=== PATIENT | female | born 2000 | race Two or more races ===

== ENCOUNTER 2024-11-21 22:07 | Emergency (ER) | payer MEDICAID ==
[~2024-11-21] VITALS: Ht 165.1 cm; Wt 59.4 kg
[2024-11-21 22:30] VITALS: BP 103/49; PULSE 98; RESP 18; TEMP 98.1; O2SAT 97
--- NOTE | 2024-11-21 22:44 | ED.PDOC ---
Back pain HPI HPI Comments PATIENT C/O GENERALIZED, SHARP ABDOMINAL PAIN WITH DARK DIARRHEA FOR ONE MONTH. PT LMP 10/06, HAS TAKEN HOME TEST WHICH WAS NEGATIVE. DENIES NAUSEA, VOMITING, RECENT TRAVEL OR KNOWN ILL CONTACTS. DENIES VAGINAL BLEEDING, SPOTTING. Time Seen by MD: 22:24 Primary Care Provider: Erwin Myles Notes: Nurses Notes, Medications, Allergies Allergies: Coded Allergies: NO KNOWN ALLERGIES (Unverified , 03/12/15) Home Meds Active Scripts Cephalexin Monohydrate (Cephalexin) 500 Mg Cap, 1 CAP PO TID for 7 Days, #21 CAP Prov:CROW ENGLAND BARREL DEDENTING MACHINE OPERATOR 11/22/24 Information Source: Patient Past Medical History PAST MEDICAL HISTORY: Denies Surgical History: Denies all surgeries FRICTION SAW OPERATOR History: No Pertinent FRICTION SAW OPERATOR History Family History Family History: Unknown Social History Smoker: Non-Smoker Alcohol: Denies ETOH Use Drugs: Denies Drug Use Lives In: Home Constitutional: denies: chills, diaphoresis, fatigue, fever, malaise, sweats, weakness, others EENTM: denies: blurred vision, double vision, ear bleeding, ear discharge, ear drainage, ear pain, ear ringing, eye pain, eye redness, hearing loss, mouth pain, mouth swelling, nasal discharge, nose bleeding, nose congestion, nose pain, photophobia, tearing, throat pain, throat swelling, voice changes, others Respiratory: denies: cough, hemoptysis, orthopnea, SOB at rest, shortness of breath, SOB with excertion, stridor, wheezing, others Cardiovascular: denies: chest pain, dizzy spells, diaphoresis, Dyspnea on exertion, edema, irregular heart beat, left arm pain, lightheadedness, palpitations, PND, syncope, others Gastrointestinal: reports: abdominal pain, diarrhea, melena; denies: abdomen distended, blood streaked bowels, constipated, dysphagia, difficulty swallowing, hematemesis, nausea, poor appetite, poor fluid intake, rectal bleeding, rectal pain, vomiting, others Genitourinary: denies: abnormal vagina bleeding, burning, dyspareunia, dysuria, flank pain, frequency, hematuria, incontinence, pain, , vagina discharge, urgency, others Neurological: denies: dizziness, fainting, headache, left sided numbness, left sided weakness, numbness, paresthesia, pre-existing deficit, right sided numbness, right sided weakness, seizure, speech problems, tingling, tremors, weakness, others Musculoskeletal: denies: back pain, gout, joint pain, joint swelling, muscle pain, muscle stiffness, neck pain, others Integumetry: denies: bruises, change in color, change in hair/nails, dryness, laceration, lesions, lumps, rash, wounds, others Allergic/Immunocompromised: denies: Difficulty Healing, Frequent Infections, Hives, Itching, others Hematologic/Lymphatic: denies: anemia, blood clots, easy bleeding, easy bruising, swollen glands, others Endocrine: denies: excessive hunger, excessive sweating, excessive thirst, excessive urination, flushing, intolerance to cold, intolerance to heat, u nexplained weight gain, unexplained weight loss, others Psychiatric: denies: anxiety, bipolar disorder, depression, hopeless, panic disorder, schizophrenia, sleepless, suicidal, others Physical Exam General Appearance: No Apparent Distress, Normal HEENT: Normal ENT Inspection, Pharynx Normal, TMs Normal Neck: Full Range of Motion, Non-Tender, Normal, Normal Inspection Respiratory: Chest Non-Tender, Lungs Clear, No Accessory Muscle Use, No Respiratory Distress, Normal Breath Sounds Cardiovascular: No Edema, No JVD, No Murmur, No Gallop, Normal Peripheral Pulses, Regular Rate/Rhythm Breast Exam: Deferred Gastrointestinal: No Organomegaly, Non Tender, No Pulsatile Mass, Normal Bowel Sounds, Soft Genitalia: Deferred Pelvic: Deferred Rectal: Deferred Extremities: No calf tenderness, Normal capillary refill, Normal inspection, Normal range of motion, Non-tender, No pedal edema Musculoskeletal : Apperance: Normal Neurologic: Alert, bridge mechanic II-XII nml as Tested, No Motor Deficits, Normal Affect, Normal Mood, No Sensory Deficits Cerebellar Function: Normal Reflexes: Normal Skin: Dry, Normal Color, Warm Lymphatic: No Adenopathy Was a procedure done? Was a procedure done?: No Back Pain Differential Dx Differential Diagnosis: Appendicitis, Bowel Obstruction, Cholelithiasis, Cholangitis X-Ray, Labs, Meds, VS Vital Signs Date Time Temp Pulse Resp B/P (MAP) Pulse Ox O2 Delivery O2 Flow Rate FiO2 11/21/24 22:30 Room Air 11/21/24 22:30 98.1 98 18 103/49 (67) 97 98.1 11/21/24 22:30 98.1 98 18 103/49 (67) 97 98.1 Lab Test 11/21/24 23:21 11/21/24 22:38 Range/Units White Blood Count 4.8 4.4-10.8 10^3/uL Red Blood Count 3.05 L 4.0-5.20 10^6/uL Hemoglobin 10.7 L 12.2-16.2 g/dL Hematocrit 31.6 L 36.0-46.0 % Mean Corpuscular Volume 103.5 H 80.0-100.0 fL Mean Corpuscular Hemoglobin 35.2 H 28.0-32.0 pg Mean Corpuscular Hemoglobin Concent 34.0 32.0-36.0 g/dL Red Cell Distribution Width 12.7 11.8-14.3 % Platelet Count 260 140-450 10^3/uL Mean Platelet Volume 7.3 6.9-10.8 fL Neutrophils (%) (Auto) 51.2 37.0-80.0 % Lymphocytes (%) (Auto) 35.0 10.0-50.0 % Monocytes (%) (Auto) 10.9 0.0-12.0 % Eosinophils (%) (Auto) 2.1 0.0-7.0 % Basophils (%) (Auto) 0.8 0.0-2.0 % Neutrophils # (Auto) 2.4 1.6-8.6 10 ^3/uL Lymphocytes # (Auto) 1.7 0.4-5.4 10 ^3/uL Monocytes # (Auto) 0.5 0-1.3 10 ^3/uL Eosinophils # (Auto) 0.1 0-0.8 10 ^3/uL Basophils # (Auto) 0 0-0.2 10 ^3/uL Nucleated Red Blood Cells 0.1 % Sodium Level 143 136-145 mmol/L Potassium Level 3.5 3.5-5.1 mmol/L Chloride Level 112 H 98-107 mmol/L Carbon Dioxide Level 25 20-31 mmol/L Anion Gap 6 5-15 Blood Urea Nitrogen 8 L 9-23 mg/dL Creatinine 0.50 L 0.550-1.02 mg/dL Glomerular Filtration Rate Calc 134 >90 mL/min BUN/Creatinine Ratio 16.0 10.0-20.0 Serum Glucose 107 H 74-106 mg/dL Calcium Level 8.0 L 8.7-10.4 mg/dL Total Bilirubin 0.2 0.2-1.0 mg/dL Aspartate Amino Transferase (AST) < 8 L 13-40 U/L Alanine Aminotransferase (ALT) 10 7-40 U/L Alkaline Phosphatase 44 L 46-116 U/L Total Protein 5.9 5.7-8.2 g/dL Albumin 4.1 3.2-4.8 g/dL Lipase 58 H 12-53 U/L Beta HCG, Quantitative 998.6 H 1.5-4.2 mIU/mL Urine Color Light-orange Yellow Urine Clarity Turbid H Clear Urine pH 6.0 5.0-9.0 Urine Specific [place] 1.030 1.001-1.035 Urine Protein Negative Negative Urine Ketones Trace Negative Urine Blood Negative Negative /uL Urine Nitrite Negative Negative Urine Bilirubin Negative Negative Urine Urobilinogen Normal Negative mg/dL Urine Leukocyte Esterase 3+ Negative /uL Urine RBC 9 0 - 4 /hpf Urine Microscopic WBC 33 H 0-5 /HPF Urine Squamous Epithelial Cells Mod <5 /hpf Urine Bacteria Few H None Seen /hpf Urine Mucus Few None Seen Urine Glucose Normal Normal mg/dL Urine Test Positive Negative X-Ray, Labs, Meds, VS Comment IMPRESSION: 1. Tiny cystic structure in the endometrial cavity which could be an early gestational sac. Follow-up by trending beta HCGs and follow-up ultrasound in 7- 14 days. 2. Thick-walled centrally hypoechoic structure in the right ovary which could reflect a corpus luteum cyst although a gestational sac is not excluded. Close clinical follow-up recommended. The ordering provider with given preliminary findings by the sock knitting machine operator. 3. Left ovary not visualized. BETA HCG 998.6 DISCUSSED FINDINGS WITH PATIENT AND PATIENT'S MOTHER IN DETAIL. COPIES OF ULTRASOUND PROVIDED. ADVISED TO FOLLOW UP WITHIN 7-14 DAYS EITHER HERE IN THE ER OR CALL ON WEDNESDAY SET UP AN APPOINTMENT WITH OB HERE AT THE HOSPITAL FOR REPEAT ULTRASOUND AND BETA HCG FOR TRENDING. ADVISED ON ER PRECAUTIONS INCREASING PAIN, BLEEDING VAGINALLY OR ANY CONCERNING SYMPTOMS PATIENT AND MOT HER INDICATED UNDERSTANDING. UA POSITIVE INFECTION SCRIPT KEFLEX TO PHARMACY ON FILE. ADVISED TO TAKE MEDICATIONS PRESCRIBED SIDE EFFECTS DISCUSSED. ADVISED TO REST INCREASE P.O. FLUIDS WITH ELECTROLYTES. ADVISED TO CALL AND FOLLOW UP WITH YOUR DOCTOR IN 2 DAYS [id number] TYLENOL NEEDED FOR PAIN PER LABELED DOSING INSTRUCTIONS. ER RETURN PRECAUTIONS GIVEN MOTHER AND PATIENT INDICATED UNDERSTANDING AND AGREE WITH DISCHARGE PLAN OF CARE. Time of 1ST Reevaluation: 22:44 Reevaluation 1ST: Unchanged Time of 2ND Reevaluation: 01:13 Reevaluation 2ND: Improved Patient Education/Counseling: Diagnosis, Treatment, Prognosis, Need For Follow Up Family Education/Counseling: No Family Present Departure 1 Departure Time of Disposition: 01:13 Impression: Primary Impression: Threatened miscarriage in early Additional Impression: Urinary tract infection Qualified Codes: N30.00 - Acute cystitis without hematuria Disposition: HOME / SELF CARE / HOMELESS Condition: Stable Additional Instructions: DISCUSSED FOLLOW UP FOR REPEAT BLOOD WORK IN ULTRASOUND IN 7-14 DAYS. RETURN TO THE ER IMMEDIATELY FOR INCREASING PAIN, VAGINAL BLEEDING OR ANY OTHER CONCERNING SYMPTOMS. e-Prescriptions Cephalexin Monohydrate (Cephalexin) 500 Mg Cap 1 CAP PO TID for 7 Days, #21 CAP Prov: CROW ENGLAND 11/22/24 Discharged With: Self Critical Care Note Critical Care Time?: No Stability Stability form required: CROW Allen November 21, 2024 22:44
[2024-11-21 23:11] LABS: Urine Bacteria FEW /hpf (None Seen); Urine Blood Negative /uL (Negative); Urine Clarity Turbid (Clear); Urine Color Light-Orange (Yellow); Urine Mucus FEW (None Seen); Urine Protein, UAD Negative (Negative); Urine Squamous Epithelial Cell MOD /hpf (<5); Urine Urobilinogen Normal (Negative); Urine WBC 33 /HPF (0-5)
[2024-11-21 23:31] LABS: Basophils # (auto) 0 10 ^3/uL (0-0.2); Eosinophils # (auto) 0.1 10 ^3/uL (0-0.8); Hemoglobin 10.7 g/dL (12.2-16.2); Monocytes # (auto) 0.5 10 ^3/uL (0-1.3)
[2024-11-21 23:33] LABS: Basophils % (auto) 0.8 % (0.0-2.0); Eosinophils % (auto) 2.1 % (0.0-7.0); Hematocrit 31.6 % (36.0-46.0); Lymphocytes # (auto) 1.7 10 ^3/uL (0.4-5.4); Mean Corpuscular Hemoglobin 35.2 pg (28.0-32.0); Mean Corpuscular Volume 103.5 fL (80.0-100.0); Monocytes % (auto) 10.9 % (0.0-12.0); Neutrophils # (auto) 2.4 10 ^3/uL (1.6-8.6); Neutrophils % (auto) 51.2 % (37.0-80.0); Nucleated Red Blood Cells % 0.1 %; Platelet Count (auto) 260 10^3/uL (140-450); Red Blood Cells 3.05 10^6/uL (4.0-5.20); Red Cell Distribution Width 12.7 % (11.8-14.3); White Blood Cell 4.8 10^3/uL (4.4-10.8)
[2024-11-21 23:48] LABS: Alanine Aminotransferase 10 U/L (7-40); Albumin 4.1 g/dL (3.2-4.8); Anion Gap 6 (5-15); Carbon Dioxide 25 mmol/L (20-31); Potassium 3.5 mmol/L (3.5-5.1); Sodium 143 mmol/L (136-145); Total Protein 5.9 g/dL (5.7-8.2)
[2024-11-21 23:54] LABS: Alkaline Phosphatase 44 U/L (46-116); Aspartate Aminotransferase < 8 U/L (13-40); Bilirubin, Total 0.2 mg/dL (0.2-1.0); Blood Urea Nitrogen 8 mg/dL (9-23); Chloride 112 mmol/L (98-107); Glucose 107 mg/dL (74-106); Lipase 58 U/L (12-53)
--- NOTE | 2024-11-22 00:59 | DVH ---
OBSTETRIC ULTRASOUND PRIOR TO 14 WEEKS CLINICAL INDICATION: ABD PAIN TECHNIQUE: Multiple grayscale ultrasound images were obtained of the pelvis via transabdominal and tr ansvaginal approach for obstetric evaluation. Limited color Doppler and spectral Doppler acquisitions were also obtained. COMPARISON: None FINDINGS: Uterus: 7.6 x 5.4 x 4.1 cm. Possible early gestational sac measuring 0.33 cm. No pole or yolk s ac seen. Right adnexa: right ovary 3.1 x 2.6 x 2.0 cm. Normal arterial blood flow in the ovary. No right adnex al mass seen. A thick-walled central mild fluid containing structure in the right ovary is seen. Ther e is a cyst in the right ovary measuring 2.4 cm. Left adnexa: left ovary not visualized . No left adnexal mass seen. Other: None IMPRESSION: 1. Tiny cystic structure in the endometrial cavity which could be an early gestational sac. Follow-up by trending beta HCGs and follow-up ultrasound in 7-14 days. 2. Thick-walled centrally hypoechoic structure in the right ovary which could reflect a corpus luteum cyst although a gestational sac is not excluded. Close clinical follow-up recommended. The ordering provider with given preliminary findings by the intervention manager. 3. Left ovary not visualized.
[2024-11-22] MEDS ORDERED: CEPH500C PO (01:15)
== END 2024-11-22 01:24 | disposition home or self-care (01) ==
LOC: ER 22:07
DX: O20.0 Threatened abortion (principal); O23.41 Unspecified infection of urinary tract in pregnancy, first trimester; N39.0 Urinary tract infection, site not specified; Z3A.01 Less than 8 weeks gestation of pregnancy
CPT/HCPCS: 36415; 76801; 76817; 80053; 81001; 81025; 83690; 84702; 85025

== ENCOUNTER 2024-11-22 05:16 | Emergency (ER) | payer MEDICAID ==
[~2024-11-22] VITALS: Ht 165.1 cm; Wt 59.6 kg
[~2024-11-22 05:16] MED LIST: CEPH500C PO
[2024-11-22 06:17] LABS: Hemoglobin 11.6 g/dL (12.2-16.2)
[2024-11-22 06:20] LABS: Hematocrit 33.3 % (36.0-46.0)
--- NOTE | 2024-11-22 08:03 | ED.PDOC ---
GI ASSESSMENT HPI Comments 24 year old female presents to the ED with chief complaint of GI bleed. Patient reports that she has been experiencing some blood in her stool since yesterday along with unassociated numbness/tingling to her feet and face, dizziness, and abdominal pain. Patient relays that she was seen yesterday for her abdominal pain and was told she was along with having a possible ectopic , needing to follow up with her OBGYN for further assessment. Patient notes she was also told she had a UTI. Patient denies any N/V, fever, chills, dysuria, hematuria, chest pain, or SOB. Chief Complaint: GI Bleed Time Seen by MD: 07:58 Primary Care Provider: Erwin Myles Notes: Nurses Notes, Medications, Allergies Allergies: Coded Allergies: NO KNOWN ALLERGIES (Unverified , 03/12/15) Home Meds Active Scripts Cephalexin Monohydrate (Cephalexin) 500 Mg Cap, 1 CAP PO TID for 7 Days, #21 CAP Prov:SAMANTAKIMBERLIK REDEVELOPMENT MANAGER 11/22/24 Information Source: Patient Mode of Arrival: Ambulatory Timing: Hours Duration: Since onset Prehospital treatment: None Quality: Aching Vomitus: None Stool: Blood Streaked Severity: Moderate Recent: None Recent Hx of: Current , None Past Medical History PAST MEDICAL HISTORY: Denies Surgical History: Denies all surgeries ELEMENTARY SCHOOL LIBRARIAN History: No Pertinent ELEMENTARY SCHOOL LIBRARIAN History Family History Family History: Unknown Social History Smoker: Non-Smoker Alcohol: Occasionally Drugs: Marijuana Lives In: Home Constitutional: denies: chills, diaphoresis, fatigue, fever, malaise, sweats, weakness, others EENTM: denies: blurred vision, double vision, ear bleeding, ear discharge, ear drainage, ear pain, ear ringing, eye pain, eye redness, hearing loss, mouth pain, mouth swelling, nasal discharge, nose bleeding, nose congestion, nose pain, photophobia, tearing, throat pain, throat swelling, voice changes, others Respiratory: denies: cough, hemoptysis, orthopnea, SOB at rest, shortness of breath, SOB with excertion, stridor, wheezing, others Cardiovascular: denies: chest pain, dizzy spells, diaphoresis, Dyspnea on exertion, edema, irregular heart beat, left arm pain, lightheadedness, palpitations, PND, syncope, others Gastrointestinal: reports: abdominal pain, blood streaked bowels; denies: abdomen distended, constipated, diarrhea, dysphagia, difficulty swallowing, hematemesis, melena, nausea, poor appetite, poor fluid intake, rectal bleeding, rectal pain, vomiting, others Genitourinary: reports: ; denies: abnormal vagina bleeding, burning, d yspareunia, dysuria, flank pain, frequency, hematuria, incontinence, pain, vagina discharge, urgency, others Neurological: reports: dizziness, numbness, tingling; denies: fainting, headache, left sided numbness, left sided weakness, paresthesia, pre-existing deficit, right sided numbness, right sided weakness, seizure, speech problems, tremors, weakness, others Musculoskeletal: denies: back pain, gout, joint pain, joint swelling, muscle pain, muscle stiffness, neck pain, others Integumetry: denies: bruises, change in color, change in hair/nails, dryness, laceration, lesions, lumps, rash, wounds, others Allergic/Immunocompromised: denies: Difficulty Healing, Frequent Infections, Hives, Itching, others Hematologic/Lymphatic: denies: anemia, blood clots, easy bleeding, easy bruising, swollen glands, others Endocrine: denies: excessive hunger, excessive sweating, excessive thirst, excessive urination, flushing, intolerance to cold, intolerance to heat, unexplained weight gain, unexplained weight loss, others Psychiatric: denies: anxiety, bipolar disorder, depression, hopeless, panic disorder, schizophrenia, sleepless, suicidal, others All Other Systems: Reviewed and Negative Physical Exam General Appearance: No Apparent Distress, Normal HEENT: Normal ENT Inspection, Pharynx Normal, TMs Normal Neck: Full Range of Motion, Non-Tender, Normal, Normal Inspection Respiratory: Chest Non-Tender, Lungs Clear, No Accessory Muscle Use, No Respi ratory Distress, Normal Breath Sounds Cardiovascular: No Edema, No JVD, No Murmur, No Gallop, Normal Peripheral Pulses, Regular Rate/Rhythm Breast Exam: Deferred Gastrointestinal: No Organomegaly, Non Tender, No Pulsatile Mass, Normal Bowel Sounds, Soft Genitalia: Deferred Pelvic: Deferred Rectal: Deferred Extremities: No calf tenderness, Normal capillary refill, Normal inspection, Normal range of motion, Non-tender, No pedal edema Musculoskeletal : Apperance: Normal Neurologic: Alert, break out man II-XII nml as Tested, No Motor Deficits, Normal Affect, Normal Mood, No Sensory Deficits Cerebellar Function: Normal Reflexes: Normal Skin: Dry, Pallor, Warm Lymphatic: No Adenopathy Was a procedure done? Was a procedure done?: No GI differential Dx Differential Diagnosis: Dehydration, Other (Threatened miscarriage) X-Ray, Labs, Meds, VS Vital Signs Date Time Temp Pulse Resp B/P (MAP) Pulse Ox O2 Delivery O2 Flow Rate FiO2 11/22/24 08:18 98.5 79 18 100/39 (59) 100 98.5 11/22/24 08:11 79 17 100 Room Air* 0 21 11/22/24 07:07 98.9 64 13 105/49 (67) 99 98.9 11/22/24 05:25 98.3 78 18 110/65 (80) 97 98.3 Lab Test 11/22/24 09:38 11/22/24 08:12 11/22/24 05:56 Range/Units Urine Color Light-yellow Yellow Urine Clarity Clear Clear Urine pH 6.0 5.0-9.0 Urine Specific [place] 1.015 1.001-1.035 Urine Protein Negative Negative Urine Ketones Negative Negative Urine Blood Negative Negative /uL Urine Nitrite Negative Negative Urine Bilirubin Negative Negative Urine Urobilinogen Normal Negative mg/dL Urine Leukocyte Esterase Trace Negative /uL Urine RBC 1 0 - 4 /hpf Urine Microscopic WBC 7 H 0-5 /HPF Urine Squamous Epithelial Cells Few <5 /hpf Urine Bacteria None seen None Seen /hpf Urine Glucose Normal Normal mg/dL White Blood Count 4.9 4.4-10.8 10^3/uL Red Blood Count 3.20 L 4.0-5.20 10^6/uL Hemoglobin 11.3 L 11.6 L 12.2-16.2 g/dL Hematocrit 33.3 L 33.3 L 36.0-46.0 % Mean Corpuscular Volume 104.2 H 80.0-100.0 fL Mean Corpuscular Hemoglobin 35.4 H 28.0-32.0 pg Mean Corpuscular Hemoglobin Concent 34.0 32.0-36.0 g/dL Red Cell Distribution Width 13.1 11.8-14.3 % Platelet Count 278 140-450 10^3/uL Mean Platelet Volume 7.7 6.9-10.8 fL Neutrophils (%) (Auto) 56.4 37.0-80.0 % Lymphocytes (%) (Auto) 32.4 10.0-50.0 % Monocytes (%) (Auto) 9.5 0.0-12.0 % Eosinophils (%) (Auto) 1.1 0.0-7.0 % Basophils (%) (Auto) 0.6 0.0-2.0 % Neutrophils # (Auto) 2.8 1.6-8.6 10 ^3/uL Lymphocytes # (Auto) 1.6 0.4-5.4 10 ^3/uL Monocytes # (Auto) 0.5 0-1.3 10 ^3/uL Eosinophils # (Auto) 0.1 0-0.8 10 ^3/uL Basophils # (Auto) 0 0-0.2 10 ^3/uL Nucleated Red Blood Cells 0.0 % Troponin I High Sensitivity < 3 L < 3 L </=34 ng/L Sodium Level 143 136-145 mmol/L Potassium Level 3.8 3.5-5.1 mmol/L Chloride Level 111 H 98-107 mmol/L Carbon Dioxide Level 24 20-31 mmol/L Anion Gap 8 5-15 Blood Urea Nitrogen 9 9-23 mg/dL Creatinine 0.79 # 0.550-1.02 mg/dL Glomerular Filtration Rate Calc 107 >90 mL/min BUN/Creatinine Ratio 11.4 10.0-20.0 Serum Glucose 74 74-106 mg/dL Calcium Level 9.2 8.7-10.4 mg/dL B-Type Natriuretic Peptide 44.07 0-100 pg/mL Current Medications Medications (Trade) Dose Ordered Sig/Massimo Route Start Time Stop Time Status Last Admin Sodium Chloride 1,000 ml @ 1,000 mls/hr Q1H ONCE IV 11/22/24 08:00 11/22/24 08:59 DC 11/22/24 08:23 Time of 1ST Reevaluation: 08:58 Reevaluation 1ST: Improved Patient Education/Counseling: Diagnosis, Treatment Family Education/Counseling: No Family Present Additional Information The following tests were ordered, and results were reviewed by me: CBC, BMP, UA Additional Information was gathered from interviewing the following independent historians: None I reviewed and agreed with the following test results read by other providers: None I discussed treatment and results with medical personnel and: patient Comprehensive systems review obtained and negative except for what is stated in the HPI. Departure 1 Departure Time of Disposition: 10:13 (Patient with a threatened miscarriage versus early ectopic. We will discharge patient home with outpatient follow up) Impression: Primary Impression: Threatened miscarriage in early Disposition: HOME / SELF CARE / HOMELESS Condition: Stable Referrals: TOYIN LONDON DO Additional Instructions: You have a threatened miscarriage. Your beta hcg level today was 998. Your ultrasound showed a possible early in your uterus and a cystic structure in your right ovary. You should follow up with OBGYN within three days to recheck your blood work and your ultrasound. Please call for an appointment. If your symptoms worsen or you have any other concerns then please return to the ER. Discharged With: Self Critical Care Note Critical Care Time?: No Stability Stability form required: No Heart Score Heart Score: Heart Score Response (Comments) Value History N/A 0 EKG N/A 0 Age N/A 0 Risk Factors N/A 0 Troponin N/A 0 Total 0 I personally scribed for ARMIDA ADLER MD ([email or web address]) on 11/22/24 at 08:03. Electronically submitted by Marco Antonio Gaming ([email or web address]). ARMIDA ADLER MD November 22, 2024 08:03
[2024-11-22 08:11] VITALS: PULSE 79; RESP 17; O2SAT 100
[2024-11-22 08:12] LABS: Potassium 3.8 mmol/L (3.5-5.1); Sodium 143 mmol/L (136-145)
[2024-11-22 08:13] LABS: Anion Gap 8 (5-15); Carbon Dioxide 24 mmol/L (20-31)
[2024-11-22 08:14] LABS: Calcium 9.2 mg/dL (8.7-10.4)
[2024-11-22 08:19] LABS: BUN/Creatinine Ratio 11.4 (10.0-20.0)
[2024-11-22 08:22] LABS: Blood Urea Nitrogen 9 mg/dL (9-23); Chloride 111 mmol/L (98-107); Glucose 74 mg/dL (74-106)
[2024-11-22] MEDS: SODIUM CHLORIDE 0.9% 1,000 ML IV ONE (08:23)
[2024-11-22] MEDS: ONDANSETRON HCL 4 MG/2 ML VIAL IV ONE (08:24)
[2024-11-22 08:35] LABS: Basophils # (auto) 0 10 ^3/uL (0-0.2); Basophils % (auto) 0.6 % (0.0-2.0); Eosinophils # (auto) 0.1 10 ^3/uL (0-0.8); Eosinophils % (auto) 1.1 % (0.0-7.0); Hematocrit 33.3 % (36.0-46.0); Hemoglobin 11.3 g/dL (12.2-16.2); Lymphocytes # (auto) 1.6 10 ^3/uL (0.4-5.4); Lymphocytes % (auto) 32.4 % (10.0-50.0); Mean Corpuscular Hemoglobin 35.4 pg (28.0-32.0); Mean Corpuscular Volume 104.2 fL (80.0-100.0); Monocytes # (auto) 0.5 10 ^3/uL (0-1.3); Monocytes % (auto) 9.5 % (0.0-12.0); Neutrophils # (auto) 2.8 10 ^3/uL (1.6-8.6); Neutrophils % (auto) 56.4 % (37.0-80.0); Platelet Count (auto) 278 10^3/uL (140-450); Red Cell Distribution Width 13.1 % (11.8-14.3); White Blood Cell 4.9 10^3/uL (4.4-10.8)
[2024-11-22 09:40] LABS: Urine Bacteria None Seen /hpf (None Seen)
[2024-11-22 09:56] LABS: Urine Blood Negative /uL (Negative); Urine Clarity Clear (Clear); Urine Color Light-Yellow (Yellow); Urine Protein, UAD Negative (Negative); Urine Specific Gravity 1.015 (1.001-1.035); Urine Squamous Epithelial Cell FEW /hpf (<5); Urine Urobilinogen Normal (Negative); Urine WBC 7 /HPF (0-5)
[2024-11-22 11:04] VITALS: BP 108/56; PULSE 61; RESP 16; TEMP 98.7; O2SAT 99
== END 2024-11-22 11:05 | disposition home or self-care (01) ==
LOC: ER 05:16
DX: O20.0 Threatened abortion (principal); R06.02 Shortness of breath; Z3A.01 Less than 8 weeks gestation of pregnancy
CPT/HCPCS: 36415; 80048; 81001; 83880; 84484; 85014; 85018; 85025; 96360; 99283; J7030; J2405

== ENCOUNTER 2024-11-27 00:17 | Emergency (ER) | payer MEDICAID ==
[~2024-11-27] VITALS: Ht 165.1 cm; Wt 55.1 kg
[2024-11-27 00:50] LABS: Urine Bacteria MANY /hpf (None Seen); Urine Blood 3+ /uL (Negative); Urine Clarity Turbid (Clear); Urine Color Light-Orange (Yellow); Urine Mucus FEW (None Seen); Urine Protein, UAD 1+ (Negative); Urine Squamous Epithelial Cell MANY /hpf (<5); Urine Urobilinogen Normal (Negative); Urine WBC 21 /HPF (0-5)
--- NOTE | 2024-11-27 02:11 | DVH ---
INDICATION: VAG BLEEDING, FOLLOW UP ULTRASOUND TECHNIQUE: Multiple real-time grayscale transabdominal sonographic images along with color and duplex Doppler of the uterus and ovaries were obtained. COMPARISON: US OB ULTRASOUND COMP LESS 14WKS on DOS: 11/21/24 Uterus: 7.8 x 4.1 x 5.3 cm. Possible early gestational sac measuring 0.7 cm compared with 0.3 cm on t he prior ultrasound. No pole or yolk sac seen. Right adnexa: right ovary 4.3 x 2.4 x 2.0 cm. Normal arterial blood flow in the ovary. No right adnex al mass seen. A thick-walled cystic structure measuring approximately 2.0 x 1.8 x 1.3 cm is redemonst rated within the right ovary. A cystic structure adjacent to the ovary measures 2.5 x 2.4 x 1.8 cm. Left adnexa: left ovary measures 2.8 x 1.9 x 2.2 cm. Normal arterial blood flow in the ovary. No lef t adnexal mass seen. IMPRESSION: 1. Mild interval progression in size of potential early gestational sac now measuring 0.7 cm without identifiable yolk sac. Recommend follow-up trending beta hCGs and follow-up ultrasound as indicated. 2. Grossly stable appearing thick walled cystic structure within the right ovary and cystic structure adjacent to the right ovary.
[2024-11-27 02:44] VITALS: BP 99/62; TEMP 98.2
[2024-11-27 02:49] VITALS: PULSE 90; RESP 20; O2SAT 98
--- NOTE | 2024-11-27 02:49 | ED.PDOC ---
TERMINAL SUPERVISOR HPI Comments PATIENT C/O VAGINAL SPOTTING AND ABDOMINAL PAIN FOR 2 DAYS. PATIENT WAS SEEN HERE, TOLD SHE NEEDED TO FOLLOW UP WITH OBGYN IN 7-10 DAYS. ULTRA SOUND WAS UNCLEAR. Chief Complaint: Vaginal Bleed Time Seen by MD: 00:27 Reviewed Notes: Nurses Notes, Medications, Allergies Allergies: Coded Allergies: NO KNOWN ALLERGIES (Unverified , 03/12/15) Home Meds Active Scripts Nitrofurantoin Monohydrate Mac (Macrobid) 100 Mg Cap, 100 MG PO BID for 7 Days, #14 CAP Prov:CROW ENGLAND HEAD COUNSELOR 11/27/24 Cephalexin Monohydrate (Cephalexin) 500 Mg Cap, 1 CAP PO TID for 7 Days, #21 CAP Prov:CROW ENGLAND HEAD COUNSELOR 11/22/24 Information Source: Patient Past Medical History PAST MEDICAL HISTORY: Denies Surgical History: Denies all surgeries AUTH SPECIALIST History: No Pertinent AUTH SPECIALIST History Family History Family History: Unknown Social History Smoker: Non-Smoker Alcohol: Occasionally Drugs: Marijuana Lives In: Home Constitutional: denies: chills, diaphoresis, fatigue, fever, malaise, sweats, weakness, others EENTM: denies: blurred vision, double vision, ear bleeding, ear discharge, ear drainage, ear pain, ear ringing, eye pain, eye redness, hearing loss, mouth pain, mouth swelling, nasal discharge, nose bleeding, nose congestion, nose pain, photophobia, tearing, throat pain, throat swelling, voice changes, others Respiratory: denies: cough, hemoptysis, orthopnea, SOB at rest, shortness of breath, SOB with excertion, stridor, wheezing, others Cardiovascular: denies: chest pain, dizzy spells, diaphoresis, Dyspnea on exertion, edema, irregular heart beat, left arm pain, lightheadedness, palpitations, PND, syncope, others Gastrointestinal: denies: abdomen distended, abdominal pain, blood streaked bowels, constipated, diarrhea, dysphagia, difficulty swallowing, hematemesis, melena, nausea, poor appetite, poor fluid intake, rectal bleeding, rectal pain, vomiting, others Genitourinary: reports: abnormal vagina bleeding, burning, dysuria, ; denies: dyspareunia, flank pain, frequency, hematuria, incontinence, pain, vagina discharge, urgency, others Neurological: denies: dizziness, fainting, headache, left sided numbness, left sided weakness, numbness, paresthesia, pre-existing deficit, right sided numbness, right sided weakness, seizure, speech problems, tingling, tremors, weakness, others Musculoskeletal: denies: back pain, gout, joint pain, joint swelling, muscle pain, muscle stiffness, neck pain, others Integumetry: denies: bruises, change in color, change in hair/nails, dryness, laceration, lesions, lumps, rash, wounds, others Allergic/Immunocompromised: denies: Difficulty Healing, Frequent Infections, Hives, Itching, others Hematologic/Lymphatic: denies: anemia, blood clots, easy bleeding, easy bruisi ng, swollen glands, others Endocrine: denies: excessive hunger, excessive sweating, excessive thirst, exce ssive urination, flushing, intolerance to cold, intolerance to heat, unexplained weight gain, unexplained weight loss, others Psychiatric: denies: anxiety, bipolar disorder, depression, hopeless, panic disorder, schizophrenia, sleepless, suicidal, others Physical Exam General Appearance: No Apparent Distress, Normal HEENT: Pharynx Normal Neck: Full Range of Motion, Non-Tender Respiratory: Lungs Clear, No Respiratory Distress, Normal Breath Sounds Cardiovascular: No Edema, No JVD, No Murmur, No Gallop, Normal Peripheral Pulses, Regular Rate/Rhythm Breast Exam: Deferred Gastrointestinal: No Organomegaly, Non Tender, No Pulsatile Mass, Normal Bowel Sounds, Soft Genitalia: Deferred Pelvic: Deferred Rectal: Deferred Extremities: Normal capillary refill, Normal inspection, Normal range of motion, Non-tender, No pedal edema Musculoskeletal : Apperance: Normal Neurologic: Alert, vehicle refinisher II-XII nml as Tested, No Motor Deficits, Normal Affect, Normal Mood, No Sensory Deficits Cerebellar Function: Normal Reflexes: Normal Skin: Dry, Normal Color, Warm Lymphatic: No Adenopathy Was a procedure done? Was a procedure done?: No Differential Diagnosis (AUTH SPECIALIST) Vaginal Bleeding: - Threatened, Ectopic , UTI X-Ray, Labs, Meds, VS Vital Signs Date Time Temp Pulse Resp B/P (MAP) Pulse Ox O2 Delivery O2 Flow Rate FiO2 11/27/24 02:49 90 20 98 Room Air* 0 21 11/27/24 02:44 98.2 90 20 99/62 (74) 99 98.2 11/27/24 00:30 97.4 99 18 126/70 (88) 96 97.4 Lab Test 11/27/24 01:22 11/27/24 00:25 Range/Units Beta HCG, Quantitative 1472.7 H 1.5-4.2 mIU/mL Urine Color Light-orange Yellow Urine Clarity Turbid H Clear Urine pH 6.0 5.0-9.0 Urine Specific [place] 1.020 1.001-1.035 Urine Protein 1+ H Negative Urine Ketones Negative Negative Urine Blood 3+ H Negative /uL Urine Nitrite 2+ H Negative Urine Bilirubin Negative Negative Urine Urobilinogen Normal Negative mg/dL Urine Leukocyte Esterase 2+ Negative /uL Urine RBC 13 0 - 4 /hpf Urine Microscopic WBC 21 H 0-5 /HPF Urine Squamous Epithelial Cells Many <5 /hpf Urine Bacteria Many H None Seen /hpf Urine Mucus Few None Seen Urine Glucose Normal Normal mg/dL Current Medications Medications (Trade) Dose Ordered Sig/Massimo Route Start Time Stop Time Status Last Admin Ceftriaxone Sodium 50 ml @ 100 mls/hr ONCE ONCE IV 11/27/24 01:45 11/27/24 02:14 DC 11/27/24 03:00 Sodium Chloride 1,000 ml @ 1,000 mls/hr Q1H ONCE IV 11/27/24 01:45 11/27/24 02:44 DC 11/27/24 03:00 X-Ray, Labs, Meds, VS Comment Vaginal ultrasound shows no ectopic does show ovarian cyst a gestational sac. Recommendation is to continue with serial beta-hCGs and repeat ultrasound in 5-7 days. Patient does state she has an appointment on 11/27/2024 with her Ob. Copy of the ultrasound results in the beta hCG results were given the patient for her appointment. Does show her beta hCG is trending upward by almost doubling from 5 days ago. Patient does state spotting has resolved. UA does show positive infection with positive nitrites, WBCs, leukocyte esterase. Patient was given 1 dose of IV Rocephin and 1 L of fluids she does report improvement. She was prescribed Keflex 500 mg 3 times daily on her last visit 5 days ago in the ER she does state she has been taking the medications as prescribed states she has 2 days left. Case was discussed with Dr. Reeves, consider Possible resistance of the bacteria script trial of Macrobid 2 capsules twice a day x7 days. Urine culture was also sent along with a GC/chlamydia. S he reports no abdominal pain. Advised to continue to follow with obstetrics and gynecology professor, return to the ER for increasing pain, vaginal bleeding, or any concerning symptoms. Patient indicated understanding and agrees with discharge plan of care. Time of 1ST Reevaluation: 01:20 Reevaluation 1ST: Unchanged Time of 2ND Reevaluation: 03:22 Reevaluation 2ND: Improved Patient Education/Counseling: Diagnosis, Treatment, Prognosis, Need For Follow Up Family Education/Counseling: No Family Present Departure 1 Departure Time of Disposition: 03:26 Impression: Primary Impression: Threatened miscarriage in early Additional Impression: Urinary tract infection Qualified Codes: N30.01 - Acute cystitis with hematuria Disposition: HOME / SELF CARE / HOMELESS Condition: Stable e-Prescriptions Nitrofurantoin Monohydrate Mac (Macrobid) 100 Mg Cap 100 MG PO BID for 7 Days, #14 CAP Prov: CROW ENGLAND 11/27/24 Discharged With: Self Critical Care Note Critical Care Time?: No Stability Stability form required: CROW Allen November 27, 2024 02:49
[2024-11-27] MEDS: SODIUM CHLORIDE 0.9% 1,000 ML IV ONE (03:00)
[2024-11-27] MEDS: cefTRIAXone 1GM/50ML D5W 50 ML IV ONE (03:00)
[2024-11-27] MEDS ORDERED: NITR-87 PO (03:46)
== END 2024-11-27 04:03 | disposition home or self-care (01) ==
LOC: ER 00:17
DX: O20.0 Threatened abortion (principal); O23.41 Unspecified infection of urinary tract in pregnancy, first trimester; N39.0 Urinary tract infection, site not specified; Z3A.00 Weeks of gestation of pregnancy not specified
CPT/HCPCS: 36415; 76801; 76817; 81001; 84702; 96365; 99285; J0696

== ENCOUNTER 2025-04-15 15:14 | Emergency (ER) | payer MEDICAID ==
[~2025-04-15] VITALS: Ht 165.1 cm; Wt 56.3 kg
--- NOTE | 2025-04-15 16:26 | ED.PDOC ---
DOORMAKER HPI Comments Carmen Leonard is a 24-year-old female with past medical history of mis carriage on 11/2024 and ovarian cyst. The patient came to the ED with chief complain of 3 week of right pelvic pain, 5/10, cramp like, associated with lightheadedness, fatigue and generalized weakness. The patient reports some intermittent irregular vaginal spotting. Today, the pain worsen to 7/10, this prompted her visit to the ED. The patient denies fever, chills, vaginal dischar ge, nausea, vomit or other symptoms. In the ED, the patient is tachycardic: 110bpm, BP: 118/65mmHg. A pelvic US and labs were ordered. Chief Complaint: Pelvic Pain Time Seen by MD: 15:49 Allergies: Coded Allergies: NO KNOWN ALLERGIES (Unverified , 03/12/15) Past Medical History PAST MEDICAL HISTORY: Denies Surgical History: Denies all surgeries 1 Para 0 AB 1 () LMP September,. The patient reported that after the miscarriage she got the IUD, and she hasn't seen her menstrual periods since then. Family History Family History: Reviewed,noncontributory to illness, Unknown Social History Smoker: Non-Smoker Alcohol: Denies ETOH Use, Occasionally Drugs: Denies Drug Use, Marijuana Lives In: Home Constitutional: reports: fatigue, weakness EENTM: denies: blurred vision, double vision, ear bleeding, ear discharge, ear drainage, ear pain, ear ringing, eye pain, eye redness, hearing loss, mouth pain, mouth swelling, nasal discharge, nose bleeding, nose congestion, nose pain, photophobia, tearing, throat pain, throat swelling, voice changes, others Respiratory: denies: cough, hemoptysis, orthopnea, SOB at rest, shortness of breath, SOB with excertion, stridor, wheezing, others Cardiovascular: denies: chest pain, dizzy spells, diaphoresis, Dyspnea on exertion, edema, irregular heart beat, left arm pain, lightheadedness, palpitations, PND, syncope, others Gastrointestinal: denies: abdomen distended, abdominal pain, blood streaked bowels, constipated, diarrhea, dysphagia, difficulty swallowing, hematemesis, melena, nausea, poor appetite, poor fluid intake, rectal bleeding, rectal pain, vomiting, others Genitourinary: reports: abnormal vagina bleeding, others (Pelvic pain); denies: burning, dyspareunia, dysuria, flank pain, frequency, hematuria, incontinence, pain, , vagina discharge, urgency Neurological: denies: dizziness, fainting, headache, left sided numbness, left sided weakness, numbness, paresthesia, pre-existing deficit, right sided numbness, right sided weakness, seizure, speech problems, tingling, tremors, weakness, others Musculoskeletal: denies: back pain, gout, joint pain, joint swelling, muscle pain, muscle stiffness, neck pain, others Integumetry: denies: bruises, change in color, change in hair/nails, dryness, laceration, lesions, lumps, rash, wounds, others Allergic/Immunocompromised: denies: Difficulty Healing, Frequent Infections, Hives, Itching, others Hematologic/Lymphatic: denies: anemia, blood clots, easy bleeding, easy bruising, swollen glands, others Endocrine: denies: excessive hunger, excessive sweating, excessive thirst, excessive urination, flushing, intolerance to cold, intolerance to heat, unexplained weight gain, unexplained weight loss, others Psychiatric: denies: anxiety, bipolar disorder, depression, hopeless, panic disorder, schizophrenia, sleepless, suicidal, others Physical Exam General Appearance: No Apparent Distress, Normal HEENT: Normal ENT Inspection, Pharynx Normal, TMs Normal Neck: Full Range of Motion, Non-Tender, Normal, Normal Inspection Respiratory: Chest Non-Tender, Lungs Clear, No Accessory Muscle Use, No Respiratory Distress, Normal Breath Sounds Cardiovascular: No Edema, No JVD, No Murmur, No Gallop, Normal Peripheral Pulses, Regular Rate/Rhythm Breast Exam: Deferred Gastrointestinal: No Organomegaly, Non Tender, No Pulsatile Mass, Normal Bowel Sounds, Soft Genitalia: Deferred Pelvic: Deferred Rectal: Deferred Extremities: No calf tenderness, Normal capillary refill, Normal inspection, Normal range of motion, Non-tender, No pedal edema Neurologic: Alert, kinesiology internship II-XII nml as Tested, No Motor Deficits, Normal Affect, Normal Mood, No Sensory Deficits Cerebellar Function: Normal Reflexes: Normal Skin: Dry, Normal Color, Warm Lymphatic: No Adenopathy Was a procedure done? Was a procedure done?: No Differential Diagnosis (ELECTRICAL APPLIANCE REPAIRER) Vaginal Bleeding: Menorrhagia Vaginal Discharge: UTI Comments #Right ovarian cyst rupture #Right ovarian torsion X-Ray, Labs, Meds, VS Vital Signs Date Time Temp Pulse Resp B/P (MAP) Pulse Ox O2 Delivery O2 Flow Rate FiO2 04/15/25 15:18 97.9 110 16 118/65 97 97.9 Lab Test 04/15/25 16:29 04/15/25 16:25 Range/Units Urine Color Light-orange Yellow Urine Clarity Ex.turbid Clear Urine pH 5.5 5.0-9.0 Urine Specific [place] 1.034 1.001-1.035 Urine Protein 1+ H Negative Urine Ketones Trace Negative Urine Blood 3+ H Negative /uL Urine Nitrite Negative Negative Urine Bilirubin Negative Negative Urine Urobilinogen 2 H Negative mg/dL Urine Leukocyte Esterase 3+ Negative /uL Urine RBC 96 0 - 4 /hpf Urine Microscopic WBC 126 H 0-5 /HPF Urine Squamous Epithelial Cells Many <5 /hpf Urine Amorphous Crystals Few None Seen /hpf Urine Bacteria Few H None Seen /hpf Urine Mucus Moderate None Seen Urine Glucose Normal Normal mg/dL White Blood Count 7.2 4.4-10.8 10^3/uL Red Blood Count 4.18 4.0-5.20 10^6/uL Hemoglobin 14.8 12.2-16.2 g/dL Hematocrit 43.6 36.0-46.0 % Mean Corpuscular Volume 104.3 H 80.0-100.0 fL Mean Corpuscular Hemoglobin 35.3 H 28.0-32.0 pg Mean Corpuscular Hemoglobin Concent 33.9 32.0-36.0 g/dL Red Cell Distribution Width 12.9 11.8-14.3 % Platelet Count 297 140-450 10^3/uL Mean Platelet Volume 8.4 6.9-10.8 fL Neutrophils (%) (Auto) 63.2 37.0-80.0 % Lymphocytes (%) (Auto) 27.4 10.0-50.0 % Monocytes (%) (Auto) 7.1 0.0-12.0 % Eosinophils (%) (Auto) 1.6 0.0-7.0 % Basophils (%) (Auto) 0.7 0.0-2.0 % Neutrophils # (Auto) 4.6 1.6-8.6 10 ^3/uL Lymphocytes # (Auto) 2.0 0.4-5.4 10 ^3/uL Monocytes # (Auto) 0.5 0-1.3 10 ^3/uL Eosinophils # (Auto) 0.1 0-0.8 10 ^3/uL Basophils # (Auto) 0 0-0.2 10 ^3/uL Nucleated Red Blood Cells 0.1 % Sodium Level 138 136-145 mmol/L Potassium Level 3.9 3.5-5.1 mmol/L Chloride Level 103 98-107 mmol/L Carbon Dioxide Level 24 20-31 mmol/L Anion Gap 11 5-15 Blood Urea Nitrogen 13 9-23 mg/dL Creatinine 0.81 0.550-1.02 mg/dL Glomerular Filtration Rate Calc 104 >90 mL/min BUN/Creatinine Ratio 16.0 10.0-20.0 Serum Glucose 91 74-106 mg/dL Calcium Level 9.6 8.7-10.4 mg/dL Beta HCG, Quantitative 0.3 L 1.5-4.2 mIU/mL X-Ray, Labs, Meds, VS Comment The patient has been re-evaluated, the patient is stable. Pelvic US showed: Multiple cysts or follicles in the bilateral ovaries. Otherwise unremarkable pelvic ultrasound. IUD in the endometrial cavity. UA: positive for UTI Time of 1ST Reevaluation: 18:32 Reevaluation 1ST: Improved Patient Education/Counseling: Diagnosis, Treatment, Prognosis, Need For Follow Up Family Education/Counseling: No Family Present Departure 1 Departure Time of Disposition: 18:36 Impression: Primary Impression: Urinary tract infection Additional Impression: Ovarian cyst Disposition: 01 HOME / SELF CARE / HOMELESS Condition: Good Referrals F/U with PCP in one week F/U with DOORMAKER in 1 week. Additional Instructions: Drink plenty water Nitrofurantoin 100mg po bid for 7 days. Motrin 600 mg po prn for pain (over the counter) Discharged With: Self Comments Goals of care discussed with the patient > 35 min. Discussed plan of care with Dr. Farley Code status: Full code PCP: Dr. Jack Plan discussed with: Patient, the patient agrees with plan. Critical Care Note Critical Care Time?: No Stability Stability form required: No Heart Score Heart Score: Heart Score Response (Comments) Value History N/A 0 EKG N/A 0 Age N/A 0 Risk Factors N/A 0 Troponin N/A 0 Total 0 ALBERTO WEBER RESIDENT Apr 15, 2025 16:26
[2025-04-15 16:42] LABS: Hemoglobin 14.8 g/dL (12.2-16.2)
[2025-04-15 16:44] LABS: Hematocrit 43.6 % (36.0-46.0); Mean Corpuscular Hemoglobin 35.3 pg (28.0-32.0); Mean Corpuscular Volume 104.3 fL (80.0-100.0); Nucleated Red Blood Cells % 0.1 %
[2025-04-15 16:47] LABS: Urine Amorphous Crystal FEW /hpf (None Seen); Urine Protein, UAD 1+ (Negative)
[2025-04-15 16:48] LABS: Chloride 103 mmol/L (98-107); Potassium 3.9 mmol/L (3.5-5.1); Sodium 138 mmol/L (136-145)
[2025-04-15 16:49] LABS: Anion Gap 11 (5-15); Carbon Dioxide 24 mmol/L (20-31)
[2025-04-15 16:50] LABS: Calcium 9.6 mg/dL (8.7-10.4)
[2025-04-15 16:55] LABS: BUN/Creatinine Ratio 16.0 (10.0-20.0); Blood Urea Nitrogen 13 mg/dL (9-23); Glucose 91 mg/dL (74-106)
--- NOTE | 2025-04-15 17:59 | DVH ---
TRANSABDOMINAL AND TRANSVAGINAL PELVIC ULTRASOUND CLINICAL HISTORY: Pelvic pain TECHNIQUE: Multiple grayscale ultrasound images were obtained of the pelvis via transabdominal and tr ansvaginal approach. Limited color Doppler and spectral Doppler acquisitions were also obtained. COMPARISON: US PELVIC TRANSVAGINAL ONLY on DOS: 02/24/25, US OB < 14 WKS on DOS: 12/04/24, US LESS THAN 14 WKS TRANSAB/VAG on DOS: 11/30/24 FINDINGS: Uterus: 7.4 x 3.8 x 4.0 cm. The uterine contour is smooth. No myometrial masses are seen. Endometrium: 0.7 cm. No endometrial mass is seen. There is an IUD in the endometrial canal. Right adnexa: right ovary 3.6 x 2.3 x 2.2 cm. Normal arterial blood flow in the ovary. No right adnex al mass seen. Multiple right ovarian cysts or follicles. Cyst in the right ovary measures 2.3 cm. Left adnexa: left ovary 3.0 x 2.0 x 2.3 cm. Normal arterial blood flow in the ovary. No left adnexal mass seen. Multiple left ovarian cysts or follicles. Cyst in the left ovary measures 1.5 cm. Other: None IMPRESSION: 1. Multiple cysts or follicles in the bilateral ovaries. 2. Otherwise unremarkable pelvic ultrasound. 3. IUD in the endometrial cavity.
[2025-04-15 19:03] VITALS: BP 123/87; PULSE 74; RESP 19; TEMP 98.3; O2SAT 99
[2025-04-16] MEDS ORDERED: NITR-52 PO (17:00)
== END 2025-04-15 19:02 | disposition home or self-care (01) ==
LOC: ER 15:14
DX: N39.0 Urinary tract infection, site not specified (principal); N83.209 Unspecified ovarian cyst, unspecified side
CPT/HCPCS: 36415; 76830; 76856; 80048; 81001; 84702; 85025

== ENCOUNTER 2025-05-13 11:09 | Emergency (ER) | payer MEDICAID ==
[~2025-05-13] VITALS: Ht 167.6 cm; Wt 55.0 kg
[~2025-05-13 11:09] MED LIST changes: -CEPH500C PO; +NITR-52 PO
[2025-05-13] MEDS: SODIUM CHLORIDE 0.9% 1,000 ML IV ONE (11:15)
--- NOTE | 2025-05-13 11:22 | ED.PDOC ---
History of Present Illness HPI Comments This is a 24 year-old female who presents to the ED via EMS with a chief complaint of N/V and R lower quadrant abdominal pain for weeks. Patient states abdominal pain is "sharp", radiating to back, with no known associated relieving factors. Patient additionally reports recent syncopal episode today when using the restroom, witnessed by mother. Patient states onset of symptoms began with IUD placement about X1 month ago. She additionally reports a Hx of ovarian cysts and miscarriage. Patient has no further complaints at this time and otherwise denies further associated symptoms of dizziness, weakness, fatigue, fever, chills, dysuria, hematuria, or diarrhea. Chief Complaint: Abdominal Pain Time Seen by MD: 11:10 Primary Care Provider: Erwin Myles Notes: Medications, Allergies Allergies: Coded Allergies: NO KNOWN ALLERGIES (Unverified , 03/12/15) Home Meds Active Scripts Nitrofurantoin (Nitrofurantoin) 100 Mg Cap, 1 CAP PO BID for 7 Days, #14 CAP Prov:KAVITA CARTWRIGHT RESIDENT 04/16/25 Information Source: Patient, Emergency Med Personnel Mode of Arrival: EMS Severity: Moderate Timing: Weeks Duration: Since onset Prehospital treatment: Pain Meds (Fentynol ) Past Medical History PAST MEDICAL HISTORY: UTI'S Surgical History: Denies all surgeries WARD SECRETARY History: No Pertinent WARD SECRETARY History Family History Family History: Reviewed,noncontributory to illness, Unknown Social History Smoker: Non-Smoker Alcohol: Occasionally Drugs: Marijuana Lives In: Home Constitutional: denies: chills, diaphoresis, fatigue, fever, malaise, sweats, weakness, others EENTM: denies: blurred vision, double vision, ear bleeding, ear discharge, ear drainage, ear pain, ear ringing, eye pain, eye redness, hearing loss, mouth pain, mouth swelling, nasal discharge, nose bleeding, nose congestion, nose pain, photophobia, tearing, throat pain, throat swelling, voice changes, others Respiratory: denies: cough, hemoptysis, orthopnea, SOB at rest, shortness of breath, SOB with excertion, stridor, wheezing, others Cardiovascular: denies: chest pain, dizzy spells, diaphoresis, Dyspnea on exertion, edema, irregular heart beat, left arm pain, lightheadedness, palpitations, PND, syncope, others Gastrointestinal: reports: abdominal pain, nausea, vomiting; denies: abdomen distended, blood streaked bowels, constipated, diarrhea, dysphagia, difficulty swallowing, hematemesis, melena, poor appetite, poor fluid intake, rectal bleeding, rectal pain, others Genitourinary: denies: abnormal vagina bleeding, burning, dyspareunia, dysuria, flank pain, frequency, hematuria, incontinence, pain, , vagina discharge, urgency, others Neurological: reports: fainting; denies: dizziness, headache, left sided numbness, left sided weakness, numbness, paresthesia, pre-existing deficit, right sided numbness, right sided weakness, seizure, speech problems, tingling, tremors, weakness, others Musculoskeletal: denies: back pain, gout, joint pain, joint swelling, muscle pain, muscle stiffness, neck pain, others Integumetry: denies: bruises, change in color, change in hair/nails, dryness, laceration, lesions, lumps, rash, wounds, others Allergic/Immunocompromised: denies: Difficulty Healing, Frequent Infections, Hives, Itching, others Hematologic/Lymphatic: denies: anemia, blood clots, easy bleeding, easy bruising, swollen glands, others Endocrine: denies: excessive hunger, excessive sweating, excessive thirst, excessive urination, flushing, intolerance to cold, intolerance to heat, unexplained weight gain, unexplained weight loss, others Psychiatric: denies: anxiety, bipolar disorder, depression, hopeless, panic disorder, schizophrenia, sleepless, suicidal, others All Other Systems: Reviewed and Negative Physical Exam General Appearance: Moderate Distress HEENT: Normal ENT Inspection, Pharynx Normal, TMs Normal Neck: Full Range of Motion, Non-Tender, Normal, Normal Inspection Respiratory: Chest Non-Tender, Lungs Clear, No Accessory Muscle Use, No Respiratory Distress, Normal Breath Sounds Cardiovascular: No Edema, No JVD, No Murmur, No Gallop, Normal Peripheral Pulses, Regular Rate/Rhythm Breast Exam: Deferred Gastrointestinal: No Organomegaly, Non Tender, No Pulsatile Mass, Normal Bowel Sounds, Soft Genitalia: Deferred Pelvic: Deferred Rectal: Deferred Extremities: No calf tenderness, Normal capillary refill, Normal inspection, Normal range of motion, Non-tender, No pedal edema Musculoskeletal : Apperance: Normal Neurologic: Alert, technical operations specialist II-XII nml as Tested, No Motor Deficits, Normal Affect, Normal Mood, No Sensory Deficits Cerebellar Function: Normal Reflexes: Normal Skin: Dry, Normal Color, Warm Peripheral Pulses: 3+ Radial (R), 3+ Radial (L) Lymphatic: No Adenopathy Was a procedure done? Was a procedure done?: No Differential Dx Considerations may include: UTI, gastritis X-Ray, Labs, Meds, VS Vital Signs Date Time Temp Pulse Resp B/P (MAP) Pulse Ox O2 Delivery O2 Flow Rate FiO2 05/13/25 11:58 66 18 98 Room Air 05/13/25 11:58 98.1 66 18 107/69 (82) 98 98.1 05/13/25 11:22 98.4 82 18 94/65 98 98.4 Current Medications Medications (Trade) Dose Ordered Sig/Massimo Route Start Time Stop Time Status Last Admin Sodium Chloride 1,000 ml @ 1,000 mls/hr Q1H ONCE IV 05/13/25 11:15 05/13/25 12:14 DC 05/13/25 11:15 Ondansetron HCl (Zofran) 4 mg ONCE ONCE IV 05/13/25 11:15 05/13/25 11:16 DC 05/13/25 12:15 Patient alert. Came in because abdominal discomfort. Abdomen is soft nontender. Vitals stable. Establish intravenous access. Was given fluids. Was given Zofran. Possibly marijuana induced. CT of the abdomen reviewed does not show any acute process. Explained to the patient. Was told to follow up with her primary care physician. Was told to come back if there is any problem. Time of 1ST Reevaluation: 12:00 Reevaluation 1ST: Improved Patient Education/Counseling: Diagnosis, Treatment Family Education/Counseling: No Family Present SEPSIS Sepsis Screen Physician Orders Urinalysis (05/13/25 11:14) Ct Ab Pel Wo Con-No Oral Or Iv (05/13/25 11:14) Vital Signs Date Time Temp Pulse Resp B/P (MAP) Pulse Ox O2 Delivery O2 Flow Rate FiO2 05/13/25 11:58 66 18 98 Room Air 05/13/25 11:58 98.1 66 18 107/69 (82) 98 98.1 05/13/25 11:22 98.4 82 18 94/65 98 98.4 Medications Medications Dose Ordered Sig/Massimo Route Start Time Stop Time Status Last Admin Dose Admin Ondansetron HCl 4 mg ONCE ONCE IV 05/13/25 11:15 05/13/25 11:16 DC 05/13/25 12:15 Sodium Chloride 1,000 ml @ 1,000 mls/hr Q1H ONCE IV 05/13/25 11:15 05/13/25 12:14 DC 05/13/25 11:15 Departure 1 Departure Time of Disposition: 11:28 Impression: Primary Impression: Dehydration Disposition: 01 HOME / SELF CARE / HOMELESS Condition: Good Discharged With: Self Critical Care Note Critical Care Time?: No Stability Stability form required: No Heart Score Heart Score: Heart Score Response (Comments) Value History N/A 0 EKG N/A 0 Age N/A 0 Risk Factors N/A 0 Troponin N/A 0 Total 0 I personally scribed for VAN GRIJALVA MD ([email or web address]) on 05/13/25 at 11:22. Electronically submitted by Cecilia Flynn ([facility]). VAN GRIJALVA MD May 13, 2025 11:22
--- NOTE | 2025-05-13 12:11 | DVH ---
CT CT AB PEL WO CON-NO ORAL OR IV INDICATION: colitis EXAM DATE: 05/13/2025 11:33 AM COMPARISON: None RADIATION DOSE: CTDIvol: 5 mGy, DLP: 279 mGy*cm PROCEDURE: Helical CT images were obtained of the abdomen and pelvis without IV contrast Sagittal and coronal reconstructions are provided. ORAL CONTRAST: None. ADDITIONAL IMAGES / REFORMATS: None All C T scans at this medical facility are performed using dose modulation techniques as appropriate to a p erformed exam including the following: Automated exposure control was utilized; adjustment of the MA and/or KV according to patient size; and use of iterative reconstruction technique. FINDINGS: LUNG BASE: Normal. LIVER: Normal. GALLBLADDER AND BILIARY TREE: No calcified gallstones. Normal caliber wall. No intra- or extrahepatic biliary ductal dilation. PANCREAS: Normal. SPLEEN: Normal. BOWEL: Normal. Normal appendix. ADRENALS: Normal. KIDNEYS AND URETER: Normal. BLADDER: Normal. REPRODUCTIVE ORGANS: IUD in the uterus. LYMPH NODES:No lymphadenopathy. PERITONEUM: No ascites or free air. No other fluid collection. VESSELS: Scattered atherosclerotic calcifications are noted. RETROPERITONEUM: Normal. ABDOMINAL WALL: Normal. BONES: Scattered osseous degenerative changes are noted. IMPRESSION: No acute intraabdominal abnormality.
[2025-05-13] MEDS: ONDANSETRON HCL 4 MG/2 ML VIAL IV ONE (12:15)
[2025-05-13 14:50] VITALS: BP 104/51; PULSE 73; RESP 18; TEMP 98.2; O2SAT 100
== END 2025-05-13 14:56 | disposition home or self-care (01) ==
LOC: EDBD 11:09 → ER 11:09
DX: E86.0 Dehydration (principal); F12.90 Cannabis use, unspecified, uncomplicated; Z79.899 Other long term (current) drug therapy
CPT/HCPCS: 74176; 96361; 96374; 99285; J2405; J7030